=== PATIENT | female | born 1950 | race Caucasian/White ===

== ENCOUNTER 2018-07-17 10:46 | Outpatient (CLI) | payer MEDICARE, OTHER ==
--- NOTE | 2018-07-20 08:57 | Mammography Report ---
REVISED: THIS REPORT WAS ORIGINALLY SIGNED ON 07/20/2018 @ 0858. ORDERING PROVIDER FIELD REVISED ON 07/17/2018. Reason: SCREENING MAMMO Procedure Date: 07/17/2018 Accession Number: [id number] / [id number] Procedure: MGN - Screening Mammo Dig Bilat CPT Code: FULL RESULT: EXAM: Screening Mammo Dig Bilat DATE: 07/17/2018 11:06 AM CLINICAL HISTORY: 67 year-old nulliparous female with history of early menses and family history of breast cancer in an aunt at age 65. TECHNIQUE: Bilateral CC and MLO views were obtained. COMPARISON: Baseline mammogram. FINDINGS: The breasts demonstrate heterogeneously dense fibroglandular parenchyma bilaterally. Coarse typically benign calcifications are seen bilaterally. No suspicious masses, clustered microcalcifications, or regions of architectural distortion are identified. IMPRESSION: Benign findings RECOMMENDATION: Routine annual screening unless otherwise clinically indicated. BIRADS CATEGORY 2: Benign findings STANDARD QUALIFYING STATEMENTS: 1. This examination was reviewed with the aid of Computer-Aided Detection (CAD). 2. A negative or benign imaging report should not delay biopsy if clinically suspicious findings are present. Consider surgical consultation if warrented. More than 5% of cancers are not identified by imaging. 3. Dense breasts may obscure an underlying neoplasm. MTDD
== END 2018-07-17 10:47 | disposition home or self-care (01) ==
LOC: DI.N 10:46
PROVIDERS: ATTEND Family Medicine
DX: Z12.31 Encounter for screening mammogram for malignant neoplasm of breast (principal); Z80.3 Family history of malignant neoplasm of breast
CPT/HCPCS: 77067

== ENCOUNTER 2020-11-06 12:24 | Emergency (ER) | payer MEDICARE, OTHER ==
[2020-11-06] MEDS ORDERED: SODIUM CHLORIDE 0.9% 1,000 ML IV STA (13:31)
--- NOTE | 2020-11-06 13:35 | ED Physician Documentation ---
History of Present Illness - Stated complaint Stated Complaint: DEHYDRATION SENT BY - Chief complaint Chief Complaint: Abd Pain - History obtained from History obtained from: Patient - History of Present Illness Timing: Today Pain level max: 0 Pain level now: 0 - Additonal information Additional information: Patient is a 70-year-old female who presents to the emergency department after being seen by her doctor on Friday for a Bartholin cyst abscess. She was started on Bactrim. Since that time she has been vomiting. She felt lightheaded and dizzy with standing today. She went back to her doctor to have an incision and drainage performed, instead of performing the procedure, her doctor sent her here for IV fluids. The patient states that the cyst ruptured when she arrived to the emergency department. No fevers. No chills. No vomiting today. Review of Systems Constitutional: denies: Fever, Chills GI: reports: Nausea, Vomiting Skin: denies: Rash Musculoskeletal: denies: Neck pain, Back pain Neurologic: denies: Headache PD PAST MEDICAL HISTORY - Past Medical History Past Medical History: Yes Cardiovascular: Hypertension, High cholesterol Endocrine/Autoimmune: Type 2 diabetes - Past Surgical History Past Surgical History: No - Present Medications Home Medications: Ambulatory Orders Medication Instructions Recorded Confirmed Cephalexin [Keflex] 500 mg PO Q6H #28 capsule 11/06/20 Doxycycline Hyclate 100 mg PO BID #14 tablet. 11/06/20 - Allergies Allergies/Adverse Reactions: Allergies Allergy/AdvReac Type Severity Reaction Status Date / Time No Known Drug Allergies Allergy Verified 11/06/20 12:35 - Living Situation Living Situation: reports: With family Living Arrangement: reports: At home PD ED PE NORMAL - Vitals Vital signs reviewed: Yes - General General: Alert and oriented X 3, No acute distress, Well developed/nourished - HEENT HEENT: PERRL, Moist mucous membranes - Neck Neck: Supple, no meningeal sign - Cardiac Cardiac: RRR, Strong equal pulses - Respiratory Respiratory: No respiratory distress, Clear bilaterally - Abdomen Abdomen: Soft, Non tender, Non distended - Female Female : Ops Manager present (Regina Rutherford RN), Other (Ruptured Bartholin's gland cyst. Pus freely draining.) - Derm Derm: Warm and dry - Neuro Neuro: Alert and oriented X 3 - Psych Psych: Normal mood, Normal affect Results - Vitals Vitals: Vital Signs - 24 hr 12/14/20 12/14/20 12:31 14:34 Temperature 36.7 C 36.8 C Heart Rate 85 67 Respiratory 16 18 Rate Blood Pressure 132/67 H 148/58 H O2 Saturation 96 98 Oxygen O2 Source Room air - Labs Labs: Laboratory Tests 11/06/20 11/06/20 13:45 13:45 WBC 10.6 RBC 5.28 Hgb 14.7 Hct 46.0 MCV 87.1 MCH 27.8 MCHC 32.0 RDW 14.4 Plt Count 378 MPV 10.4 Neut # (Auto) 7.9 H Lymph # (Auto) 1.5 Stark # (Auto) 0.9 Eos # (Auto) 0.3 Baso # (Auto) 0.1 Absolute Nucleated RBC 0.00 Nucleated RBC % 0.0 Sodium 136 Potassium 4.0 Chloride 103 Carbon Dioxide 18 L Anion Gap 15.0 H BUN 23 H Creatinine 1.4 H Estimated GFR (MDRD) 37 L Glucose 111 H Calcium 9.6 PD MEDICAL DECISION MAKING - ED course Complexity details: reviewed results, re-evaluated patient, considered differential, d/w patient ED course: 70-year-old female with a spontaneously ruptured and draining Bartholin's gland cyst. She has had vomiting from her Bactrim. We will change this to doxycycline. Patient also feels lightheaded and dizzy with standing, likely dehydration from vomiting. Given IV fluids. Patient feels better. We will have her follow-up with her doctor for further care. Patient counseled regarding signs and symptoms for which I believe and urgent re-evaluation would be necessary. Patient with good understanding of and agreement to plan and is comfortable going home at this time This document was made in part using voice recognition software. While efforts are made to proofread this document, sound alike and grammatical errors may occur. Departure - Departure Disposition: 01 Home, Self Care Clinical Impression: Dehydration, Bartholin's gland abscess Condition: Good Instructions: ED Bartholins Cyst IandD, ED Dehydration Follow-Up: MICAELA DEXTER MD [Primary Care Provider] - Within 1 week Prescriptions: Doxycycline Hyclate 100 mg PO BID #14 tablet. Cephalexin [Keflex] 500 mg PO Q6H #28 capsule Comments: Take all antibiotics until gone. Return if you worsen. Stop the bactrim. Continue the warm water sitz bath's to help the cyst continue to drain. Discharge Date/Time: 11/06/20 14:41
[2020-11-06 14:00] LABS: BASOPHILS # (AUTO) 0.1 10^3/uL (0.0-0.1); BASOPHILS % (AUTO) 0.6 %; EOSINOPHILS # (AUTO) 0.3 10^3/uL (0.0-0.7); EOSINOPHILS % (AUTO) 2.5 %; HGB - HEMOGLOBIN 14.7 g/dL (12.0-16.0); LYMPHOCYTES # (AUTO) 1.5 10^3/uL (1.5-3.5); LYMPHOCYTES % (AUTO) 13.7 %; MEAN CORPUSCULAR HEMOGLOBIN 27.8 pg (27.0-31.0); MEAN CORPUSCULAR VOLUME 87.1 fL (81.0-99.0); MEAN PLATELET VOLUME 10.4 fL (7.9-10.8); MONOCYTES # (AUTO) 0.9 10^3/uL (0.0-1.0); MONOCYTES % (AUTO) 8.8 %; NEUTROPHILS # (AUTO) 7.9 10^3/uL (1.5-6.6); PLT - PLATELET COUNT 378 10^3/uL (130-450); RED BLOOD COUNT 5.28 10^6/uL (4.20-5.40); RED CELL DISTRIBUTION WIDTH 14.4 % (12.0-15.0); WHITE BLOOD COUNT 10.6 x10^3/uL (4.8-10.8)
[2020-11-06 14:08] LABS: CALCIUM 9.6 mg/dL (8.5-10.3); CREATININE 1.4 mg/dL (0.4-1.0)
[2020-11-06 14:37] VITALS: BP 148/58
== END 2020-11-06 14:41 | disposition home or self-care (01) ==
LOC: ED 12:24
DX: E86.0 Dehydration (principal); R11.2 Nausea with vomiting, unspecified; T36.8X5A Adverse effect of other systemic antibiotics, initial encounter; N75.1 Abscess of Bartholin's gland; I10 Essential (primary) hypertension; E11.9 Type 2 diabetes mellitus without complications
CPT/HCPCS: 36415; 80048; 85025; 99283; 99284

== ENCOUNTER 2022-09-24 12:19 | Outpatient (CLI) | payer MEDICARE, OTHER ==
--- NOTE | 2022-09-24 15:15 | XRAY Report ---
PROCEDURE: Chest 2 View X-Ray INDICATIONS: CHEST CONGESTION TECHNIQUE: 2 views of the chest COMPARISON: None. FINDINGS: Mild opacity in the right infrahilar region. No dense consolidation or pleural effusion. Heart size is normal. No acute osseous abnormality. IMPRESSION: Mild opacity in the right infrahilar region could be atelectasis or airspace disease. Consider future imaging surveillance to assess for resolution. Reviewed by: Vladimir Putnam MD on 09/24/2022 3:14 PM PDT Approved by: Vladimir Putnam MD on 09/24/2022 3:14 PM PDT Station ID: [id number]
== END 2022-09-24 12:20 | disposition home or self-care (01) ==
LOC: DI.N 12:19
PROVIDERS: ATTEND Physician Assistant
DX: R09.89 Other specified symptoms and signs involving the circulatory and respiratory systems (principal)

== ENCOUNTER 2023-03-10 10:28 | Outpatient (CLI) | payer MEDICARE, OTHER ==
--- NOTE | 2023-03-10 16:28 | XRAY Report ---
PROCEDURE: Chest 2 View X-Ray INDICATIONS: ABN CHEST XR TECHNIQUE: 2 views of the chest were acquired. COMPARISON: None. FINDINGS: Surgical changes and devices: None. Lungs and pleura: No pleural effusions or pneumothorax. Lungs are clear. Mediastinum: Mediastinal contours appear normal. Heart size is normal. Atherosclerotic vascular c alcification noted in the aortic arch. Bones and chest wall: No suspicious bony lesions. Overlying soft tissues appear unremarkable. IMPRESSION: No acute cardiopulmonary findings Reviewed by: Abdi Flores MD on 03/10/2023 3:27 PM AKDT Approved by: Abdi Flores MD on 03/10/2023 3:27 PM AKDT Station ID: [id number]
== END 2023-03-10 10:29 | disposition home or self-care (01) ==
LOC: DI 10:28
PROVIDERS: ATTEND Physician Assistant
DX: R09.89 Other specified symptoms and signs involving the circulatory and respiratory systems (principal)

== ENCOUNTER 2023-11-04 10:41 | Outpatient (CLI) | payer MEDICARE, OTHER ==
--- NOTE | 2023-11-04 12:55 | XRAY Report ---
PROCEDURE: Knee 3 View RT INDICATIONS: RIGHT KNEE PAIN TECHNIQUE: 3 views of the knee(s) were acquired. COMPARISON: None. FINDINGS: Bones: Mild to moderate degenerative changes, with osteophytes and joint space narrowing, particular at the medial compartment. Patellar enthesopathy. No displaced fracture or dislocation. Soft tissues: Trace joint effusion. Vascular calcifications. IMPRESSION: Mild to moderate degenerative changes. Small joint effusion. Patellar enthesopathy. If there is high concern for further derangement, consider MRI evaluation. Reviewed by: Vladimir Putnam MD on 11/04/2023 12:53 PM PST Approved by: Vladimir Putnam MD on 11/04/2023 12:53 PM PST Station ID: [id number]
== END 2023-11-04 10:42 | disposition home or self-care (01) ==
LOC: DI 10:41
PROVIDERS: ATTEND Nurse Practitioner Family
DX: M17.11 Unilateral primary osteoarthritis, right knee (principal); M25.461 Effusion, right knee; M76.891 Other specified enthesopathies of right lower limb, excluding foot